=== PATIENT | female | born 2000 | race Two or more races ===

== ENCOUNTER 2024-09-17 07:19 | Emergency (ER) | payer MEDICAID, OTHER ==
[~2024-09-17] VITALS: Ht 160 cm; Wt 105.6 kg
[2024-09-17 07:46] VITALS: BP 148/77; PULSE 99; RESP 17; TEMP 98.2; O2SAT 99
[2024-09-17] MEDS ORDERED: NAP500T PO (08:21)
[2024-09-17] MEDS ORDERED: CEFD300C2 PO (08:21)
--- NOTE | 2024-09-17 08:21 | ED.PDOC ---
Eye-HPI HPI Comments 24-year-old female [facility] complaining upper front teeth pain for the past few days Chief Complaint: Tooth Pain Time Seen by MD: 07:46 Primary Care Provider: none Reviewed Notes: Nurses Notes, Medications, Allergies Allergies: Coded Allergies: NO KNOWN ALLERGIES (Unverified , 09/17/24) Home Meds Active Scripts Naproxen (NAPROSYN TABLET) 500 Mg Tb, 1 TAB PO BID for 10 Days, #20 TAB 1 Refill Prov:ABDULKADIR JONES MD 09/17/24 Cefdinir (Cefdinir) 300 Mg Cap, 1 CAP PO BID for 7 Days, #14 CAP Prov:ABDULKADIR JONES MD 09/17/24 Information Source: Patient Mode of Arrival: Ambulatory Timing: Days Duration: Since onset Quality: Pain Mouth Location: Upper, Tooth/Teeth Mouth: Right, Incisor, Normal Onset: Spontaneous Modifying factors: Cold Past Medical History PAST MEDICAL HISTORY: Denies Surgical History: Denies all surgeries TOE PUNCHER History: No Pertinent TOE PUNCHER History Family History Family History: Reviewed,noncontributory to illness, No family hx of Cancer, No family hx of DM, No family hx of Heart david, No family hx of HTN, No family hx ofKidney david, No family hx of Liver david, No family hx of Lung david, No family hx of Stroke Social History Smoker: Non-Smoker Alcohol: Denies ETOH Use Constitutional: denies: chills, diaphoresis, fatigue, fever, malaise, sweats, weakness, others EENTM: reports: mouth swelling; denies: blurred vision, double vision, ear bleeding, ear discharge, ear drainage, ear pain, ear ringing, eye pain, eye redness, hearing loss, mouth pain, nasal discharge, nose bleeding, nose congestion, nose pain, photophobia, tearing, throat pain, throat swelling, voice changes, others Respiratory: denies: cough, hemoptysis, orthopnea, SOB at rest, shortness of breath, SOB with excertion, stridor, wheezing, others Cardiovascular: denies: chest pain, dizzy spells, diaphoresis, Dyspnea on exertion, edema, irregular heart beat, left arm pain, lightheadedness, palpitations, PND, syncope, others Gastrointestinal: denies: abdomen distended, abdominal pain, blood streaked bowels, constipated, diarrhea, dysphagia, difficulty swallowing, hematemesis, melena, nausea, poor appetite, poor fluid intake, rectal bleeding, rectal pain, vomiting, others Genitourinary: denies: abnormal vagina bleeding, burning, dyspareunia, dysuria, flank pain, frequency, hematuria, incontinence, pain, , vagina dischar ge, urgency, others Musculoskeletal: denies: back pain, gout, joint pain, joint swelling, muscle pain, muscle stiffness, neck pain, others Integumetry: denies: bruises, change in color, change in hair/nails, dryness, laceration, lesions, lumps, rash, wounds, others Allergic/Immunocompromised: denies: Difficulty Healing, Frequent Infections, Hives, Itching, others Hematologic/Lymphatic: denies: anemia, blood clots, easy bleeding, easy bruising, swollen glands, others Endocrine: denies: excessive hunger, excessive sweating, excessive thirst, excessive urination, flushing, intolerance to cold, intolerance to heat, unexplained weight gain, unexplained weight loss, others Psychiatric: denies: anxiety, bipolar disorder, depression, hopeless, panic disorder, schizophrenia, sleepless, suicidal, others All Other Systems: Reviewed and Negative Physical Exam General Appearance: Mild Distress HEENT: Pale Conjuntivae (L), PERRL/EOMI, Other (Pain to the superior incisor mildly discolored no gingivitis no swelling no drainage pain to morbidity) Neck: Full Range of Motion, Non-Tender, Normal, Normal Inspection Respiratory: Chest Non-Tender, Lungs Clear, No Accessory Muscle Use, No Respiratory Distress, Normal Breath Sounds Cardiovascular: No Edema, No JVD, No Murmur, No Gallop, Normal Peripheral Pulses, Regular Rate/Rhythm Breast Exam: Deferred Gastrointestinal: No Organomegaly, Non Tender, No Pulsatile Mass, Normal Bowel Sounds, Soft Genitalia: Deferred Pelvic: Deferred Rectal: Deferred Extremities: No calf tenderness, Normal capillary refill, Normal inspection, Normal range of motion, Non-tender, No pedal edema Neurologic: Alert, service establishment attendant II-XII nml as Tested, No Motor Deficits, Normal Affect, Normal Mood, No Sensory Deficits Cerebellar Function: Normal Reflexes: Normal Skin: Dry, Normal Color, Warm Peripheral Pulses: 1+ carotid (R), 1+ carotid (L) Lymphatic: No Adenopathy Was a procedure done? Was a procedure done?: No EENT DIFF Eye: N/A Ear: N/A Nose: N/A Mouth: N/A Sore Throat: Other (Upper incisor pain and discoloration no infection) X-Ray, Labs, Meds, VS Vital Signs Date Time Temp Pulse Resp B/P (MAP) Pulse Ox O2 Delivery O2 Flow Rate FiO2 09/17/24 07:46 98.2 99 17 148/77 (100) 99 98.2 09/17/24 07:46 99 17 99 Room Air 09/17/24 07:30 98.2 99 17 148/77 (100) 99 X-Ray, Labs, Meds, VS Comment Patient will be discharged to follow up with her dentist mostly Time of 1ST Reevaluation: 08:30 Reevaluation 1ST: Unchanged Consultation: PCP Patient Education/Counseling: Diagnosis, Treatment, Prognosis, Need For Follow Up Family Education/Counseling: Diagnosis, Treatment, Prognosis, Need For Follow Up, No Family Present Departure 1 Departure Time of Disposition: 08:18 Impression: Primary Impression: Pain of tooth on application of pressure Disposition: 01 HOME / SELF CARE / HOMELESS Condition: Good Additional Instructions: Mouthwash with peroxide e-Prescriptions Naproxen (NAPROSYN TABLET) 500 Mg Tb 1 TAB PO BID for 10 Days, #20 TAB 1 Refill Prov: ABDULKADIR JONES MD 09/17/24 Cefdinir (Cefdinir) 300 Mg Cap 1 CAP PO BID for 7 Days, #14 CAP Prov: ABDULKADIR JONES MD 09/17/24 Discharged With: Self Critical Care Note Critical Care Time?: No Stability Stability form required: No Heart Score Heart Score: Heart Score Response (Comments) Value History N/A 0 EKG N/A 0 Age <45 0 Risk Factors No known risk factors 0 Troponin N/A 0 Total 0 ABDULKADIR JONES MD Sep 17, 2024 08:21
== END 2024-09-17 08:28 | disposition home or self-care (01) ==
LOC: ER 07:19
DX: K08.89 Other specified disorders of teeth and supporting structures (principal)